=== PATIENT | female | born 1945 | race Caucasian/White ===

== ENCOUNTER 2018-07-07 08:30 | Observation (INO) ==
[2018-07-07 09:05] LABS: Baso % (Auto) 0.2 % (0.0-2.0); Eos # (Auto) 0.1 th/mm3 (0.0-0.4); Hematocrit 36.6 % (35.0-46.0); Hemoglobin 12.2 gm/dL (11.6-15.3); Lymph % (Auto) 14.9 % (9.0-44.0); Mean Corpuscular HGB Conc 33.3 % (32.0-36.0); Mean Corpuscular Hemoglobin 30.4 pg (27.0-34.0); Mean Corpuscular Volume 91.5 fL (80.0-100.0); Mean Platelet Volume 6.9 fL (7.0-11.0); Mono # (Auto) 0.6 th/mm3 (0.0-0.9); Mono % (Auto) 4.2 % (0.0-8.0); Neut # (Auto) 10.7 th/mm3 (1.8-7.7); Neut % (Auto) 79.7 % (16.0-70.0); Platelet Count 293 th/mm3 (150-450); Red Cell Distribution Width 13.9 % (11.6-17.2); White Blood Count 13.4 th/mm3 (4.0-11.0)
[2018-07-07 09:11] LABS: Chloride 101 meq/L (98-107); Potassium 3.8 meq/L (3.5-5.1); Sodium 136 meq/L (136-145)
[2018-07-07 09:14] LABS: Albumin 3.3 g/dL (3.4-5.0); Anion Gap 9 meq/L (5-15); Calcium 8.4 mg/dL (8.5-10.1); Carbon Dioxide 26.4 meq/L (21.0-32.0); Glucose,Random 194 mg/dL (74-106); Lipase 141 U/L (73-393)
[2018-07-07 09:15] LABS: Blood Urea Nitrogen 18 mg/dL (7-18)
[2018-07-07 09:17] LABS: Alanine Aminotransferase 16 U/L (10-53); Aspartate Aminotransferase 13 U/L (15-37); Glomerular Filtration Rate 49 mL/min (>89)
[2018-07-07 09:19] LABS: Total Protein 7.7 g/dL (6.4-8.2)
[2018-07-07 09:20] LABS: Alkaline Phosphatase 89 U/L (45-117)
--- NOTE | 2018-07-07 10:35 | CT ---
EXAM DATE: 07/07/2018 10:01 AM EST AGE/SEX: 72 years / Female INDICATIONS: Intermittent right abdominal pain for two days. CLINICAL DATA: This is the patient's initial encounter. Patient reports that signs and symptoms have been present for 2 days and indicates a pain score of 0/10. MEDICAL/SURGICAL HISTORY: Hypercholesterolemia. Renal calculi. Hypertension. None. ORAL CONTRAST: No oral contrast ingested. RADIATION DOSE: 19.60 CTDI (mGy) COMPARISON: No prior exams available for comparison. TECHNIQUE: Multiple contiguous axial images were obtained through the abdomen and pelvis following b olus infusion of 90 ml Omnipaque 350 (iohexol) nonionic water-soluble contrast as a single exam dos e. No oral contrast ingested. Using automated exposure control and adjustment of the mA and/or kV ac cording to patient size, radiation dose was kept as low as reasonably achievable to obtain optimal di agnostic quality images. DICOM format image data is available electronically for review and comparis on. FINDINGS: Lower Lungs: The visualized lower lungs are clear. Liver: The liver has a homogeneous density without space-occupying lesion. There is no dilation of th e biliary tree. Gallstones present. No definite pericholecystic inflammatory changes. Spleen: Homogeneous density without enlargement. Pancreas: Unremarkable without mass or calcification. Kidneys: Normal in size and shape. No evidence of mass or hydronephrosis. Adrenal Glands: Mild low-density prominence of the adrenal glands bilaterally which may reflect hyp erplasia or presence of adenoma. Aorta: The aorta and proximal iliac vessels are grossly unremarkable without aneurysmal dilation. Bowel/Mesentery: There is significant concentric thickening and mucosal enhancement involving the di stal most ileum and much of the proximal colon extending at least to the proximal transverse colon le fernie. There is mild hazy induration in the mesenteric fat adjacent to these bowel structures. Mild enl argement of mesenteric lymph nodes present. The bowel elsewhere is grossly unremarkable other than pr esence of multiple distal colonic diverticula. No definite evidence of obstruction at present. Abdominal Wall: Intact. Retroperitoneum: No evidence of adenopathy in the retrocrural, para-aortic, or deep pelvic regions. Bladder: Contours are smooth. Reproductive Organs: Small right adnexal cyst Inguinal: The inguinal region is unremarkable without evidence of adenopathy. Bony Structures: Unremarkable. CONCLUSION: Appearance of the distal small bowel and proximal colon most consistent with inflammatory bowel disea se. See above discussion. Gallstones Sigmoid diverticulosis Electronically signed by: Lavon Ha MD 07/07/2018 10:33 AM EST
[2018-07-07] MEDS ORDERED: Ciprofloxacin 400 MG/200 ML 400 MG/200 ML PIGGYBACK IV.SIG ONE (10:41)
--- NOTE | 2018-07-07 10:46 | ED ---
HPI General Chief Complaint: Abdominal Pain Stated Complaint: Rt side low bad/pain/loose stools x2days Time Seen by Provider: 07/07/18 09:44 Source: patient Mode of arrival: ambulatory Limitations: no limitations History of Present Illness MD complaint: Reports abdominal pain Onset (ago): day(s) (2) Pain Consistency: constant Location: Reports RLQ Severity: similar to previous episodes (About a month ago which spontaneously resolved. She did not see a doctor at that time.) Quality: Reports sharp Radiation: Reports none Migration to: Reports no migration Relieving factors: other (Tylenol) Exacerbating factors: nothing Associated symptoms: Reports nausea and diarrhea; Denies fever and chills Treatments prior to arrival: Reports other (Tylenol) Related Data Home Medications Medication Instructions Recorded Confirmed ascorbic acid (vitamin C) [Vitamin 1,000 mg PO DAILY 07/07/18 07/07/18 C] aspirin [Aspirin Low Dose] 81 mg PO DAILY 07/07/18 07/07/18 cholecalciferol (vitamin D3) 10,000 unit PO DAILY 07/07/18 07/07/18 [Vitamin D3] coenzyme Q10 [Co Q-10] 30 mg PO DAILY 07/07/18 07/07/18 lisinopril 10 mg PO DAILY 07/07/18 07/07/18 omega-3 fatty acids-fish oil [Fish 1 cap PO DAILY 07/07/18 07/07/18 Oil] omeprazole 20 mg PO DAILY 07/07/18 07/07/18 rosuvastatin 5 mg PO EVERY OTHER DAY 07/07/18 07/07/18 vitamin [id number] acid 1 tab SUBLINGUAL DAILY 07/07/18 07/07/18 Allergies Allergy/AdvReac Type Severity Reaction Status Date / Time No Known Allergies Allergy Uncoded 12/21/11 15:31 Review of Systems ROS: all other systems reviewed are negative [facility] Medical History Medical History Pierre syndrome (Acute) High cholesterol (Acute) History of kidney stones (Acute) Hypertension (Acute) Social History Social History Substance History: No History of Abuse Smoking Status: Former smoker How Often Do You Have a Drink Containing Alcohol: 2 to 3 times a week Recent Travel in [facility] within the Last 8 Weeks: No Recent Out of Country Travel within the Last 8 Weeks: No Immunization History Tetanus Immunization: Unsure Exam Const General: cooperative, healthy appearing, comfortable, no acute distress, well developed and well groomed Orientation: alert, awake and oriented x3 HENMT Head: normal to inspection, normocephalic and atraumatic Mouth: moist mucous membranes Eyes Conjunctivae: conjunctivae normal Sclera: sclerae normal EOM: EOM intact bilaterally Neck Neck: normal visual inspection and full ROM Chest Chest: normal inspection of the chest Resp Effort & Inspection: normal respiratory effort and able to speak in complete sentences Auscultation: clear to auscultation bilaterally Cardio Rate: regular rate Rhythm: regular rhythm GI Inspection: normal to inspection Palpation: soft and tender in the RLQ (In the lateral part of the right lower quadrant. Not at McBurney's point.) Back/Spine/Pelvis Cervical Spine: cervical ROM normal Thoracic/Lumbar Spine: thoraco-lumbar ROM normal Skin General: no rashes or lesions noted and turgor normal Neuro General: alert, awake, oriented x3, moves all extremities and CN's II-XI intact bilaterally Extrem General: normal to inspection and full ROM Psych Appearance: grossly normal Mental Status: mental status grossly normal Speech and Movement: speech and movement normal Mood: congruent mood Affect: normal affect Attitude: cooperative Thought Process: normal Thought Content: normal Judgment: judgment good Course Consultations Consultation #1: Dr. Gray will admit Time: 10:53 Initial Documented Vital Signs Temperature 98.2 F 07/07/18 08:35 Pulse Rate 93 H 07/07/18 08:35 Respiratory Rate 18 07/07/18 08:35 Blood Pressure 116/56 L 07/07/18 08:35 Pulse Oximetry 98 07/07/18 08:35 Last Documented Vital Signs Temperature 98.2 F 07/07/18 08:35 Pulse Rate 69 07/07/18 10:34 Respiratory Rate 16 07/07/18 10:34 Blood Pressure 90/44 L 07/07/18 10:34 Pulse Oximetry 96 07/07/18 10:34 Medical Decision Making [facility] Narrative Medical decision making narrative: This patient presents with a 2-day history of right-sided abdominal pain associated with some nausea and loose stools she had a previous similar episode approximately a month ago which spontaneously resolved after a short period of time. It has now recurred. She decided that she needed to have it checked out. Her exam is pretty benign. She does have some right sided abdominal tenderness but it is mild with no guarding or rebound. CT shows colitis. I have ordered IV Flagyl and IV Cipro. I feel that she needs to be admitted to the hospital for IV antibiotics as well as GI consultation. Medical Screen Exam Complete: Yes Emergency Medical Condition: Yes Differential Diagnosis Differential Diagnosis: Differential diagnosis of abdominal pain includes but is not limited to gastritis, pancreatitis, hepatitis, gastroenteritis, constipation, urinary retention, peptic ulcer disease, diverticulitis or appendicitis Lab Data Lab results reviewed: Yes I reviewed the patient's lab results. Result diagrams: 07/07/18 08:50 07/07/18 08:50 Lab Results 07/07/18 07/07/18 Range/Units 08:50 08:50 CBC w Diff Auto diff final WBC 13.4 H (4.0-11.0) th/mm3 RBC 4.00 (4.00-5.30) mil/mm3 Hgb 12.2 (11.6-15.3) gm/dL Hct 36.6 (35.0-46.0) % MCV 91.5 (80.0-100.0) fL MCH 30.4 (27.0-34.0) pg MCHC 33.3 (32.0-36.0) % RDW 13.9 (11.6-17.2) % Plt Count 293 (150-450) th/mm3 MPV 6.9 L (7.0-11.0) fL Neut % (Auto) 79.7 H (16.0-70.0) % Lymph % (Auto) 14.9 (9.0-44.0) % [place] % (Auto) 4.2 (0.0-8.0) % Eos % (Auto) 1.0 (0.0-4.0) % Baso % (Auto) 0.2 (0.0-2.0) % Neut # (Auto) 10.7 H (1.8-7.7) th/mm3 Lymph # (Auto) 2.0 (1.0-4.8) th/mm3 [place] # (Auto) 0.6 (0.0-0.9) th/mm3 Eos # (Auto) 0.1 (0.0-0.4) th/mm3 Baso # (Auto) 0.0 (0.0-0.2) th/mm3 WBC Differential . Differential Comment . Sodium 136 (136-145) meq/L Potassium 3.8 (3.5-5.1) meq/L Chloride 101 (98-107) meq/L Carbon Dioxide 26.4 (21.0-32.0) meq/L Anion Gap 9 (5-15) meq/L BUN 18 (7-18) mg/dL Creatinine 1.10 H (0.50-1.00) mg/dL Estimated GFR 49 L (>89) mL/min Random Glucose 194 H (74-106) mg/dL Calcium 8.4 L (8.5-10.1) mg/dL Magnesium 2.0 (1.5-2.5) mg/dL Total Bilirubin 0.4 (0.2-1.0) mg/dL AST 13 L (15-37) U/L ALT 16 (10-53) U/L Alkaline Phosphatase 89 (45-117) U/L Total Protein 7.7 (6.4-8.2) g/dL Albumin 3.3 L (3.4-5.0) g/dL Lipase 141 (73-393) U/L Imaging Data Radiologist's impression: Abdomen/Pelvis CT 07/07/18 08:39 CONCLUSION: Appearance of the distal small bowel and proximal colon most consistent with inflammatory bowel disease. See above discussion. Gallstones Sigmoid diverticulosis Discharge Plan Discharge Disposition Patient Disposition: 30 Still Patient Discharge Details Diagnosis: Abdominal pain, Colitis Physicians Team ED Provider: Skylar Sutton Primary Care Provider: Sen Franklin Rxs /Orders / Referrals /Forms Prescriptions: No Action aspirin [Aspirin Low Dose] 81 mg Tablet,Delayed Release (Dr/Ec) 81 mg PO DAILY RF: 0 ascorbic acid (vitamin C) [Vitamin C] 500 mg Tablet 1,000 mg PO DAILY RF: 0 lisinopril 10 mg Tablet 10 mg PO DAILY RF: 0 omeprazole 20 mg Capsule,Delayed Release(Dr/Ec) 20 mg PO DAILY RF: 0 coenzyme Q10 [Co Q-10] 30 mg Capsule 30 mg PO DAILY RF: 0 rosuvastatin 5 mg Tablet 5 mg PO EVERY OTHER DAY RF: 0 omega-3 fatty acids-fish oil [Fish Oil] 300-1,000 mg Capsule 1 cap PO DAILY RF: 0 cholecalciferol (vitamin D3) [Vitamin D3] 5,000 unit Tablet 10,000 unit PO DAILY RF: 0 vitamin B64-[id number] acid 1,000-400 mcg Lozenge 1 tab Sublingual DAILY RF: 0 Status ED Status: Pending Admission
[2018-07-07 10:55] LABS: Bilirubin,Urine Negative (Negative); Clarity,Urine Clear (Clear); Color,Urine Yellow (Yellw/Straw); Glucose,Urine (UA) Negative (Negative); Leukocyte Esterase,Urine Negative (Negative); Nitrite,Urine Negative (Negative); Specific Gravity,Urine Less/Equal 1.005 (1.002-1.035); Urobilinogen,Urine 0.2 mg/dL (Less than 2)
[2018-07-07 10:56] LABS: Collection Time,Urine 1045 hours
[2018-07-07 11:00] LABS: Amorphous Sediment,Urine Moderate /hpf; WBC,Urine 0-5 /hpf (0-5)
[2018-07-07] MEDS ORDERED: Sod Chloride 0.9% Inj 1,000 ML IV.SIG SCH (11:00)
[2018-07-07] MEDS ORDERED: Bisacodyl 10 MG Supp RECTAL PRN (12:28)
[2018-07-07] MEDS ORDERED: Acetaminophen 325 MG Tablet PO PRN (12:28)
--- NOTE | 2018-07-07 12:31 | P.HP ---
History of Present Illness Primary Care Physician: Sen Franklin MD Chief Complaint: Abdominal pain History of Present Illness: This is a 72-year-old female patient with a known medical history of hypertension, hyperlipidemia presented to the ED with complaints of abdominal pain and loose stools times 2 days. Patient states that on Sunday evening while at work she developed a right upper quadrant sharp pain, that radiated down to her bilateral lower quadrants, was rated an 8 out of 10 at its worst on pain scale, lasted several minutes and then went away. She states she did take some Tylenol which helped relieve the pain. She denies any known aggravating factors for the pain. Does admit to some nausea with the pain, denies any vomiting, shortness of breath or sweating. Denies any recent diarrhea although she states her stools have been loose. Denies any black or bloody stools. Denies any fevers, chills, cough, headache, chest pain, dysuria. 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 Patient denies any previous surgeries in the past. Denies any present tobacco abuse, states she quit smoking 23 years ago. She does follow with her PCP closely, last seen in March with no new changes to her medicines. She does take an aspirin daily. Otherwise denies any significant history of diverticulitis or problems with her colon. - Diagnosis (1) Abdominal pain (2) Colitis Review of Systems All other systems reviewed negative except as stated in HPI PMFSH - History History Provided By: Patient - Medical / Surgical Hx Neg / Unobtainable Surgical History: No Previous Surgery - Medical History Medical History: Medical History (Last Reviewed 07/07/18 @ 14:44 by Isaura Childers) Pierre syndrome High cholesterol History of kidney stones Hypertension - Family History Family History: Family History (Last Updated 07/07/18 @ 15:18 by Isaura Childers) Other Family history in first degree relatives is unremarkable - Social History I have reviewed the patient's Social History: Yes - Tobacco History Smoking Status: Former smoker - Alcohol History How Often Do You Have a Drink Containing Alcohol: 2 to 3 times a week - Substance Use History Substance History: No History of Abuse - Travel History Recent Travel in the [place] Within the Last 8 Weeks: No Recent Travel Out of the Country Within the Last 8 Weeks: No - Immunization History Tetanus Immunization: Unsure Medications and Allergies Active Medications: Active Medications Acetaminophen (Tylenol) 650 mg PO Q4H PRN PRN Reason: Temp > 100.4 Al Hydroxide/Mg Hydroxide (Milk Of Magnesia Liq) 30 ml PO Q12H PRN PRN Reason: Mild Constipation Bisacodyl (Dulcolax Supp) 10 mg RECTAL DAILY PRN PRN Reason: SEVERE CONSITIPATION Sodium Chloride (Ns Inj) 1,000 mls @ 100 mls/hr IV.CONT .Q10H BHUMI Metronidazole/Sodium Chloride (Flagyl 500 Mg Inj) 100 mls @ 100 mls/hr IV.SIG Q6H BHUMI Ciprofloxacin/Dextrose (Cipro 400 Mg/200 Ml Inj) 400 mg in 200 mls @ 200 mls/ hr IV.SIG Q8H BHUMI Lactulose (Lactulose Liq) 30 ml PO DAILY PRN PRN Reason: SEVERE CONSITIPATION Ondansetron HCl (Zofran Inj) 4 mg IV.PUSH Q6H PRN PRN Reason: NAUSEA OR VOMITING Sennosides (Senokot) 17.2 mg PO Q12H PRN PRN Reason: Moderate Constipation Sodium Chloride (Ns Flush) 2 ml IV.FLUSH PRN PRN PRN Reason: FLUSH AFTER USING IV ACCESS Allergies Allergy/AdvReac Type Severity Reaction Status Date / Time No Known Allergies Allergy Uncoded 12/21/11 15:31 Home Medications Medication Instructions Recorded Confirmed Type ascorbic acid (vitamin C) [Vitamin 1,000 mg PO DAILY 07/07/18 07/07/18 History C] aspirin [Aspirin Low Dose] 81 mg PO DAILY 07/07/18 07/07/18 History cholecalciferol (vitamin D3) 10,000 unit PO DAILY 07/07/18 07/07/18 History [Vitamin D3] coenzyme Q10 [Co Q-10] 30 mg PO DAILY 07/07/18 07/07/18 History lisinopril 10 mg PO DAILY 07/07/18 07/07/18 History omega-3 fatty acids-fish oil [Fish 1 cap PO DAILY 07/07/18 07/07/18 History Oil] omeprazole 20 mg PO DAILY 07/07/18 07/07/18 History rosuvastatin 5 mg PO EVERY OTHER DAY 07/07/18 07/07/18 History vitamin X42-[id number] acid 1 tab SUBLINGUAL DAILY 07/07/18 07/07/18 History Exam Vital signs: Vital Signs 07/07/18 08:35 07/07/18 10:34 07/07/18 11:13 Temperature 98.2 F Pulse Rate 93 H 69 74 Respiratory Rate 18 16 18 Blood Pressure 116/56 L 90/44 L 110/52 L Pulse Oximetry 98 96 Intake & Output 07/06/18 07/07/18 07/07/18 18:59 06:59 18:59 Intake Total 400 / 400 Balance 400 / 400 Weight 74.2 kg Intake: IV 400 / 400 Cipro 400 MG/200 ML Inj 400 mg 200 / 200 In 200 ml @ 200 mls/hr IV.SIG ONCE ONE Rx#:[id number] NS Inj 1,000 ML @ 1000 mls/hr 200 / 200 IV.SIG BOLUS BHUMI Rx#:[id number] Narrative: GENERAL: Well-developed, well-nourished patient in [employer]. SKIN: Warm and dry. No rash. HEAD: Normocephalic. Atraumatic. EYES: Pupils equal and round. No scleral icterus. No injection or drainage. ENT: No nasal bleeding or discharge. Mucous membranes pink and moist. NECK: Supple. Trachea midline. CARDIOVASCULAR: Regular rate and rhythm. S1, S2 noted. No murmur appreciated. RESPIRATORY: No accessory muscle use. Clear to auscultation. Breath sounds equal bilaterally. GASTROINTESTINAL: Abdomen soft, non-tender, nondistended. Normoactive bowel sounds x4. MUSCULOSKELETAL: No obvious deformities. Extremities without clubbing, cyanosis , or edema. NEUROLOGICAL: Awake and alert. No obvious cranial nerve deficits. Motor grossly within normal limits. 5/5 muscle strength in bilateral upper and lower extremities. Normal speech. PSYCHIATRIC: Appropriate mood and affect; insight and judgment normal. Results - Labs CBC & Chem 7: 07/07/18 08:50 07/07/18 08:50 Labs: Laboratory Results - last 24 hr 07/07/18 07/07/18 07/07/18 08:50 08:50 10:45 CBC w Diff Auto diff final WBC 13.4 H RBC 4.00 Hgb 12.2 Hct 36.6 MCV 91.5 MCH 30.4 MCHC 33.3 RDW 13.9 Plt Count 293 MPV 6.9 L Neut % (Auto) 79.7 H Lymph % (Auto) 14.9 [place] % (Auto) 4.2 Eos % (Auto) 1.0 Baso % (Auto) 0.2 Neut # (Auto) 10.7 H Lymph # (Auto) 2.0 [place] # (Auto) 0.6 Eos # (Auto) 0.1 Baso # (Auto) 0.0 WBC Differential . Differential Comment . Sodium 136 Potassium 3.8 Chloride 101 Carbon Dioxide 26.4 Anion Gap 9 BUN 18 Creatinine 1.10 H Estimated GFR 49 L Random Glucose 194 H Calcium 8.4 L Magnesium 2.0 Total Bilirubin 0.4 AST 13 L ALT 16 Alkaline Phosphatase 89 Total Protein 7.7 Albumin 3.3 L Lipase 141 Ur Collection Type Clean catch Urine Color Yellow Urine Clarity Clear Urine pH 6.0 Ur Specific [place] Less/equal 1.005 Urine Protein Negative Urine Glucose (UA) Negative Urine Ketones Negative Urine Occult Blood Negative Urine Nitrate Negative Urine Bilirubin Negative Urine Urobilinogen 0.2 Ur Leukocyte Esterase Negative Urine WBC 0-5 Ur Squamous Epith Cells 6-10 H Amorphous Sediment Moderate H Micro UA Comment Culture not ind Ur Microscopic Review Microscopic reviewed Urine Culture Comments Culture not ind Urine Collection Time 1045 - Imaging Impressions Abdomen/Pelvis CT 07/07/18 08:39 CONCLUSION: Appearance of the distal small bowel and proximal colon most consistent with inflammatory bowel disease. See above discussion. Gallstones Sigmoid diverticulosis Caprini VTE Risk Assessment Caprini VTE Risk Assessment: Moderate/High Risk (score >= 2) Caprini Risk Assessment Model: Point Value = 1 Point Value = 2 Point Value = 3 Point Value = 5 Age 41-60 Minor surgery BMI > 25 kg/m2 Swollen legs Varicose veins or History of unexplained or recurrent spontaneous Oral contraceptives or hormone replacement Sepsis (< 1 month) Serious lung disease, including pneumonia (< 1 month) Abnormal pulmonary function Acute myocardial infarction Congestive heart failure (< 1 month) History of inflammatory bowel disease Medical patient at bed rest Age 61-74 Arthroscopic surgery Major open surgery (> 45 min) Laparoscopic surgery (> 45 min) Malignancy Confined to bed (> 72 hours) Immobilizing plaster cast Central venous access Age >= 75 History of VTE Family history of VTE Factor V Leiden Prothrombin [id number] Lupus anticoagulant Anticardiolipin antibodies Elevated serum homocysteine Heparin-induced thrombocytopenia Other congenital or acquired thrombophilia Stroke (< 1 month) Elective arthroplasty Hip, pelvis, or leg fracture Acute spinal cord injury (< 1 month) Prophylaxis Regimen: Total Risk Factor Score Risk Level Prophylaxis Regimen 0-1 Low Early ambulation 2 Moderate Order ONE of the following: *Sequential Compression Device (SCD) *Heparin 5000 units SQ BID 3-4 Higher Order ONE of the following medications: *Heparin 5000 units SQ TID *Enoxaparin/Lovenox 40 mg SQ daily (WT < 150 kg, CrCl > 30 mL/min) *Enoxaparin/Lovenox 30 mg SQ daily (WT < 150 kg, CrCl > 10-29 mL/min) *Enoxaparin/Lovenox 30 mg SQ BID (WT < 150 kg, CrCl > 30 mL/min) AND/OR *Sequential Compression Device (SCD) 5 or more Highest Order ONE of the following medications: *Heparin 5000 units SQ TID (Preferred with Epidurals) *Enoxaparin/Lovenox 40 mg SQ daily (WT < 150 kg, CrCl > 30 mL/min) *Enoxaparin/Lovenox 30 mg SQ daily (WT < 150 kg, CrCl > 10-29 mL/min) *Enoxaparin/Lovenox 30 mg SQ BID (WT < 150 kg, CrCl > 30 mL/min) AND *Sequential Compression Device (SCD) Assessment and Plan - Assessment (1) Abdominal pain Code(s): R10.9 - Unspecified abdominal pain Status: Acute (2) Colitis Code(s): K52.9 - Noninfective gastroenteritis and colitis, unspecified Status : Acute - Plan This is a 72-year-old female patient with: Sepsis Acute Colitis -Patient complaint of abdominal pain and loose stools x 2 days. Abdominal pain is presently resolved. Denies any further bowel movement. -Met sepsis criteria with leukocytosis WBC 13,000, tachycardia. Lactic acid pending. Suspected source, colitis. -Abdominal/pelvis CT reviewed showing inflammatory bowel disease, gallstones and sigmoid diverticulosis. -Blood cultures pending, follow. UA negative. -Patient started on Flagyl and Cipro IV. Received 1 L NS bolus in ED. Ensure hydration, continue IVF. -CBC and BMP reviewed essentially unremarkable. Check labs in a.m. -Patient states pain is well controlled. Has not needed any medications to control pain. -Antiemetics as needed. -Supportive care. Hypertension, chronic Hyperlipidemia, chronic -Will continue home medications. Continue to monitor blood pressure trends. Elevated glucose Borderline diabetes -Patient states her PCP is monitoring her blood sugars. Diet and lifestyle modifications recommended. Will check hemglobin a1c. DVT Prophylaxis: SCDs. Heparin. (1) Abdominal pain Qualifiers: Abdominal location: right lower quadrant Qualified Code(s): R10.31 - Right lower quadrant pain
[2018-07-07] MEDS: Sod Chloride 0.9% Inj 1,000 ML IV.CONT SCH ×2 (13:31→23:02)
[2018-07-07] MEDS: Pantoprazole Sodium 20 MG DR Tablet PO SCH (16:30)
[2018-07-07] MEDS: Ciprofloxacin 400 MG/200 ML 400 MG/200 ML PIGGYBACK IV.SIG SCH (23:00)
[2018-07-07] MEDS: Heparin - SQ 10,000 UNITS/ML Vial SQ SCH (23:01)
[2018-07-08 06:11] LABS: Baso % (Auto) 0.3 % (0.0-2.0); Eos # (Auto) 0.1 th/mm3 (0.0-0.4); Eos % (Auto) 1.2 % (0.0-4.0); Hematocrit 32.8 % (35.0-46.0); Hemoglobin 10.6 gm/dL (11.6-15.3); Lymph # (Auto) 2.1 th/mm3 (1.0-4.8); Mean Corpuscular HGB Conc 32.2 % (32.0-36.0); Mean Corpuscular Hemoglobin 29.6 pg (27.0-34.0); Mean Corpuscular Volume 91.9 fL (80.0-100.0); Mean Platelet Volume 7.2 fL (7.0-11.0); Mono # (Auto) 0.5 th/mm3 (0.0-0.9); Mono % (Auto) 5.1 % (0.0-8.0); Neut # (Auto) 7.1 th/mm3 (1.8-7.7); Neut % (Auto) 72.4 % (16.0-70.0); Platelet Count 234 th/mm3 (150-450); Red Blood Count 3.57 mil/mm3 (4.00-5.30); Red Cell Distribution Width 13.2 % (11.6-17.2); White Blood Count 9.8 th/mm3 (4.0-11.0)
[2018-07-08 06:50] LABS: Anion Gap 7 meq/L (5-15); Blood Urea Nitrogen 9 mg/dL (7-18); Calcium 7.7 mg/dL (8.5-10.1); Carbon Dioxide 26.1 meq/L (21.0-32.0); Chloride 110 meq/L (98-107); Glomerular Filtration Rate Greater Than 89 mL/min (>89); Glucose,Random 104 mg/dL (74-106); Potassium 3.8 meq/L (3.5-5.1); Sodium 143 meq/L (136-145)
[2018-07-08] MEDS: Ciprofloxacin 400 MG/200 ML 400 MG/200 ML PIGGYBACK IV.SIG SCH (08:30)
[2018-07-08] MEDS: Pantoprazole Sodium 20 MG DR Tablet PO SCH (08:30)
[2018-07-08] MEDS: Heparin - SQ 10,000 UNITS/ML Vial SQ SCH (08:31)
--- NOTE | 2018-07-08 08:54 | P.PNIM ---
Subjective Interval history: Follow up colitis. Patient seen and examined, ambulating to bathroom. Denies any acute events overnight. Pain is well controlled. Tolerating PO intake, will advance diet as tolerated. VSS. Afebrile. Physical Exam Vital signs: Vital Signs 07/07/18 10:34 07/07/18 11:13 07/07/18 12:30 Temperature 98.2 F Pulse Rate 69 74 80 Respiratory Rate 18 19 Blood Pressure 90/44 L 110/52 L 117/57 L Pulse Oximetry 96 99 07/07/18 16:00 07/07/18 20:00 07/08/18 00:00 Temperature 98.3 F 98.6 F 99.1 F Pulse Rate 77 75 75 Respiratory Rate 18 Blood Pressure 104/68 116/58 L 104/52 L Pulse Oximetry 97 98 97 Intake & Output 07/07/18 07/08/18 07/08/18 18:59 06:59 18:59 Intake Total 1500 / 1500 1490 / 1490 Output Total 550 / 550 Balance 1500 / 1500 940 / 940 Weight 74.1 kg 71.6 kg Intake: IV 1500 / 1500 1400 / 1400 NS Inj 1,000 ML @ 100 mls/hr IV 1000 / 1000 .CONT .Q10H [facility] Rx#:[id number] Cipro 400 MG/200 ML Inj 400 mg 200 / 200 200 / 200 In 200 ml @ 200 mls/hr IV.SIG Q12H [facility] Rx#:[id number] NS Inj 1,000 ML @ 1000 mls/hr 1200 / 1200 IV.SIG BOLUS [facility]I Rx#:[id number] Flagyl 500 MG Inj 100 ML @ 100 100 / 100 200 / 200 mls/hr IV.SIG Q6H [facility] Rx#: [id number] Oral 90 / 90 Output: Urine 550 / 550 Other: Date of Last Bowel Movement 07/06/18 07/06/18 Weight On Admission 74.1 kg Narrative: GENERAL: Well-developed, well-nourished patient in [facility]. SKIN: Warm and dry. No rash. HEAD: Normocephalic. Atraumatic. EYES: Pupils equal and round. No scleral icterus. No injection or drainage. ENT: No nasal bleeding or discharge. Mucous membranes pink and moist. NECK: Supple. Trachea midline. CARDIOVASCULAR: Regular rate and rhythm. S1, S2 noted. No murmur appreciated. RESPIRATORY: No accessory muscle use. Clear to auscultation. Breath sounds equal bilaterally. GASTROINTESTINAL: Abdomen soft,nondistended. Normoactive bowel sounds x4. Some tenderness to right lower quadrant palpation. MUSCULOSKELETAL: No obvious deformities. Extremities without clubbing, cyanosis , or edema. NEUROLOGICAL: Awake and alert. No obvious cranial nerve deficits. Motor grossly within normal limits. 5/5 muscle strength in bilateral upper and lower extremities. Normal speech. PSYCHIATRIC: Appropriate mood and affect; insight and judgment normal. Results - Labs CBC & Chem 7: 07/08/18 05:05 07/08/18 05:05 Laboratory Results - last 24 hr 07/07/18 07/07/18 07/07/18 08:50 08:50 10:45 CBC w Diff Auto diff final WBC 13.4 H RBC 4.00 Hgb 12.2 Hct 36.6 MCV 91.5 MCH 30.4 MCHC 33.3 RDW 13.9 Plt Count 293 MPV 6.9 L Neut % (Auto) 79.7 H Lymph % (Auto) 14.9 [place] % (Auto) 4.2 Eos % (Auto) 1.0 Baso % (Auto) 0.2 Neut # (Auto) 10.7 H Lymph # (Auto) 2.0 [place] # (Auto) 0.6 Eos # (Auto) 0.1 Baso # (Auto) 0.0 WBC Differential . Differential Comment . Sodium 136 Potassium 3.8 Chloride 101 Carbon Dioxide 26.4 Anion Gap 9 BUN 18 Creatinine 1.10 H Estimated GFR 49 L Random Glucose 194 H Lactic Acid Calcium 8.4 L Magnesium 2.0 Total Bilirubin 0.4 AST 13 L ALT 16 Alkaline Phosphatase 89 Total Protein 7.7 Albumin 3.3 L Lipase 141 Ur Collection Type Clean catch Urine Color Yellow Urine Clarity Clear Urine pH 6.0 Ur Specific [place] Less/equal 1.005 Urine Protein Negative Urine Glucose (UA) Negative Urine Ketones Negative Urine Occult Blood Negative Urine Nitrate Negative Urine Bilirubin Negative Urine Urobilinogen 0.2 Ur Leukocyte Esterase Negative Urine WBC 0-5 Ur Squamous Epith Cells 6-10 H Amorphous Sediment Moderate H Micro UA Comment Culture not ind Ur Microscopic Review Microscopic reviewed Urine Culture Comments Culture not ind Urine Collection Time 1045 07/07/18 07/08/18 07/08/18 15:23 05:05 05:05 CBC w Diff Auto diff final WBC 9.8 RBC 3.57 L Hgb 10.6 L Hct 32.8 L MCV 91.9 MCH 29.6 MCHC 32.2 RDW 13.2 Plt Count 234 MPV 7.2 Neut % (Auto) 72.4 H Lymph % (Auto) 21.0 [place] % (Auto) 5.1 Eos % (Auto) 1.2 Baso % (Auto) 0.3 Neut # (Auto) 7.1 Lymph # (Auto) 2.1 [place] # (Auto) 0.5 Eos # (Auto) 0.1 Baso # (Auto) 0.0 WBC Differential . Differential Comment . Sodium 143 Potassium 3.8 Chloride 110 H D Carbon Dioxide 26.1 Anion Gap 7 BUN 9 Creatinine 0.65 Estimated GFR Greater than 89 Random Glucose 104 Lactic Acid 1.2 Calcium 7.7 L Magnesium Total Bilirubin AST ALT Alkaline Phosphatase Total Protein Albumin Lipase Ur Collection Type Urine Color Urine Clarity Urine pH Ur Specific [place] Urine Protein Urine Glucose (UA) Urine Ketones Urine Occult Blood Urine Nitrate Urine Bilirubin Urine Urobilinogen Ur Leukocyte Esterase Urine WBC Ur Squamous Epith Cells Amorphous Sediment Micro UA Comment Ur Microscopic Review Urine Culture Comments Urine Collection Time - Imaging Impressions Abdomen/Pelvis CT 07/07/18 08:39 CONCLUSION: Appearance of the distal small bowel and proximal colon most consistent with inflammatory bowel disease. See above discussion. Gallstones Sigmoid diverticulosis Assessment and Plan - Assessment (1) Abdominal pain Code(s): R10.9 - Unspecified abdominal pain Status: Acute (2) Colitis Code(s): K52.9 - Noninfective gastroenteritis and colitis, unspecified Status : Acute - Plan This is a 72-year-old female patient with: Sepsis Acute Colitis -Patient complaint of abdominal pain and loose stools x 2 days. Abdominal pain is presently resolved. Denies any further bowel movement. -Met sepsis criteria with leukocytosis WBC 13,000, tachycardia. Lactic acid WNL. Suspected source, colitis. -Abdominal/pelvis CT reviewed showing inflammatory bowel disease, gallstones and sigmoid diverticulosis. -Blood cultures pending, follow. UA negative. -Patient started on Flagyl and Cipro IV. Received 1 L NS bolus in ED. Was continued on IVF. Now tolerating PO intake, will dc IVF. -CBC and BMP reviewed essentially unremarkable. Leukocytosis improving. -Patient states pain is well controlled. Has not needed any medications to control pain. -Antiemetics as needed. -Supportive care. Hypertension, chronic Hyperlipidemia, chronic -Will continue home medications. Continue to monitor blood pressure trends. Elevated glucose Borderline diabetes -Patient states her PCP is monitoring her blood sugars. Diet and lifestyle modifications recommended. Will check hemglobin a1c. DVT Prophylaxis: SCDs. Heparin. Discharge Planning: Awaiting culture results. Awaiting to see if patient tolerates normal diet, possible DC later this afternoon. (1) Abdominal pain Qualifiers: Abdominal location: right lower quadrant Qualified Code(s): R10.31 - Right lower quadrant pain
[2018-07-08] MEDS ORDERED: Lisinopril 10 MG Tablet PO SCH (09:00)
[2018-07-08] MEDS: Sod Chloride 0.9% Inj 1,000 ML IV.CONT SCH (09:03)
[2018-07-08 10:05] VITALS: RESP 20
[2018-07-08 12:28] VITALS: BP 104/63; PULSE 71; TEMP 97.9; O2SAT 95
[2018-07-08 18:28] LABS: Hemoglobin A1c 5.6 % (4.3-6.0)
== END 2018-07-08 16:59 | disposition home or self-care (01) ==
LOC: PHED 08:30 → PHEDA 08:30 → PHICU 12:39 → PH3 17:56
PROVIDERS: ADMIT Hospitalist; ATTEND Hospitalist
DX: R73.03 Prediabetes; Z79.899 Other long term (current) drug therapy; K22.70 Barrett's esophagus without dysplasia; I10 Essential (primary) hypertension; Z87.891 Personal history of nicotine dependence; E78.5 Hyperlipidemia, unspecified; K80.20 Calculus of gallbladder without cholecystitis without obstruction; Z79.82 Long term (current) use of aspirin; K52.9 Noninfective gastroenteritis and colitis, unspecified; K57.30 Diverticulosis of large intestine without perforation or abscess without bleeding; A41.9 Sepsis, unspecified organism